=== PATIENT | female | born 1955 | race Caucasian/White ===

== ENCOUNTER 2017-09-14 12:44 | Day surgery (SDC) | payer BC ==
[~2017-09-14] VITALS: Ht 165.1 cm; Wt 83.7 kg
[2017-09-14] MEDS ORDERED: VICODIN 5-3001 EACH (13:34)
[2017-09-14] MEDS ORDERED: ESCI20 (13:34)
[2017-09-14] MEDS ORDERED: Omeprazole20 M1 (13:35)
== END 2017-09-14 14:45 | disposition home or self-care (01) ==
LOC: ORSCSDS 12:44
PROVIDERS: Internal Medicine Gastroenterology
PROC: 0D758ZZ Dilation of Esophagus, Via Natural or Artificial Opening Endoscopic (ICD-10-PCS; 2017-09-14)
PROC: 0DB68ZX Excision of Stomach, Via Natural or Artificial Opening Endoscopic, Diagnostic (ICD-10-PCS; principal; 2017-09-14 14:00)
DX: K21.9 Gastro-esophageal reflux disease without esophagitis (principal); K31.7 Polyp of stomach and duodenum; K29.70 Gastritis, unspecified, without bleeding; R13.10 Dysphagia, unspecified; I10 Essential (primary) hypertension; E78.5 Hyperlipidemia, unspecified; Z79.899 Other long term (current) drug therapy
CPT/HCPCS: 88305; 88342; J7120

== ENCOUNTER → 2019-02-14 | Outpatient (CLI) | payer BC ==
[~2019-02-14] MED LIST: ATOR20 PO; ESCI10 PO; GLIP5 PO; METF500C PO; Norco 5-325 Ta1 EACH PO; OMEPRAZOLE20 MG PO; Omeprazole20 M1; VICODIN 5-3001 EACH
[2019-02-14 15:44] LABS: Albumin, Blood 3.1 g/dL (3.4-5.0); Anion Gap 7 mmol/L (6-16); Blood Urea Nitrogen 37 mg/dL (8-24); Bun/Creatinine Ratio 10.6 (12.0-20.0); CO2, Blood 22 mmol/L (21-32); Calcium, Blood 7.8 mg/dL (8.5-10.1); Chloride, Blood 113 mmol/L (98-108); Glomerular Filtration Rate 14 (60-); Glucose, Blood 89 mg/dL (70-99); Phosphorus, Blood 3.8 mg/dL (2.5-4.9); Potassium, Blood 3.8 mmol/L (3.5-5.5); Sodium, Blood 142 mmol/L (136-145)
== END | disposition home or self-care (01) ==
LOC: LAB 15:06 → LAB SHORT 15:06
PROVIDERS: Internal Medicine Nephrology
DX: N18.4 Chronic kidney disease, stage 4 (severe) (principal); D63.1 Anemia in chronic kidney disease; D51.8 Other vitamin B12 deficiency anemias; D50.9 Iron deficiency anemia, unspecified; D52.8 Other folate deficiency anemias
CPT/HCPCS: 80069; 82728; 83540; 83550

== ENCOUNTER 2019-02-20 08:51 | Observation (INO) | payer BC ==
[~2019-02-20] VITALS: Ht 165.1 cm; Wt 78.3 kg
[~2019-02-20 08:51] MED LIST changes: -ATOR20 PO; -GLIP5 PO; -METF500C PO
[2019-02-20] MEDS ORDERED: TRAM50 PO (09:45)
[2019-02-20 10:52] LABS: Source, Urine Clean Catch
[2019-02-20 10:57] LABS: Bilirubin, Urine Neg (Neg); Blood, Urine 3+ (Neg); Glucose Qualitative, Urine 3+ (Neg); Ketones, Urine Neg (Neg); Leukocyte Esterase, Urine 1+ (Neg); Nitrite, Urine Neg (Neg); Protein, Urine 2+ (Neg); Urobilinogen, Urine NORM (Normal)
[2019-02-20 11:15] LABS: Appearance, Urine Clear (Clear); Bacteria Rare /hpf; Color, Urine Yellow (P-Yellow); Squamous Epithelial Cells Few /hpf (Few)
[2019-02-20 11:16] LABS: Granular Casts 0-2 /lpf (0); Hyaline Casts 0-2 /lpf (0-2)
[2019-02-20 11:30] LABS: Albumin, Blood 3.7 g/dL (3.4-5.0); Albumin/Globulin Ratio 0.8 (0.8-1.8); Bilirubin, Total 0.2 mg/dL (0.1-1.0); Bun/Creatinine Ratio 10.1 (12.0-20.0); Calcium, Blood 9.5 mg/dL (8.5-10.1); Creatinine, Blood 4.76 mg/dL (0.40-1.00); Globulin, Blood 4.8 g/dL (2.2-4.0); Potassium, Blood 3.6 mmol/L (3.5-5.5); Total Protein, Blood 8.5 g/dL (6.4-8.2)
[2019-02-20 11:46] LABS: BASOPHILS ABSOLUTE AUTO 0.05 K/mm3 (0.00-0.23); BASOPHILS PERCENT AUTO 1 % (0-2); EOSINOPHILS ABSOLUTE AUTO 0.22 K/mm3 (0.00-0.68); EOSINOPHILS PERCENT AUTO 3 % (0-6); Hematocrit 33.5 % (33.0-51.0); Hemoglobin 10.9 g/dL (11.5-16.0); IMMATURE GRAN ABSOLUTE AUTO 0.07 K/mm3 (0.00-0.10); IMMATURE GRAN PERCENT AUTO 1 % (0-1); LYMPHOCYTES ABSOLUTE AUTO 1.42 K/mm3 (0.84-5.20); LYMPHOCYTES PERCENT AUTO 17 % (21-46); MONOCYTES ABSOLUTE AUTO 0.82 K/mm3 (0.16-1.47); MONOCYTES PERCENT AUTO 10 % (4-13); Mean Corpuscular HGB 30.2 pg (26.0-34.0); Mean Corpuscular HGB Conc 32.5 g/dL (31.5-36.5); Mean Corpuscular Volume 93 fL (80-100); Mean Platelet Volume 8.8 fL (9.1-12.4); NEUTROPHILS ABSOLUTE AUTO 5.89 K/mm3 (1.96-9.15); NEUTROPHILS PERCENT AUTO 70 % (41-73); NRBC ABSOLUTE 0.03 K/mm3 (0.00-0.02); NRBC Auto 0.4 /100 WBC (0.0-0.2); Platelet Count 454 K/mm3 (150-400); RDW Coefficient Variation 13.7 % (11.7-14.2); RDW Standard Deviation 45.2 fL (35.1-46.3); Red Blood Cell Count 3.61 M/mm3 (3.80-5.20); White Blood Cell Count 8.47 K/mm3 (4.00-11.30)
[2019-02-20] MEDS ORDERED: GLIP5 PO (12:40)
[2019-02-20] MEDS ORDERED: ATOR20 PO (12:41)
[2019-02-20] MEDS ORDERED: METF500C PO (12:41)
[2019-02-20] MEDS ORDERED: PSEUDOEPHEDRINE30 MG PO (12:43)
[2019-02-20] MEDS ORDERED: Vitamin D2000 UNIT PO (13:11)
--- NOTE | 2019-02-20 16:05 | NUR ---
SPOKE WITH DR. MATOS TO CONFIRM LR ADMINISTRATION. FLUID ORDER TO REMAIN LR @75ML/HR.
--- NOTE | 2019-02-20 18:42 | NUR ---
SHIFT SUMMARY ED ADMIT. RENAL FAILURE. BARRIOS PATIENT. SEEN BY DR. KENNEDY TODAY. CHRONIC BACK AND NECK PAIN (CERICAL AND LUMBAR FUSION HX). PLEASANT, COOPERATIVE, INDEPENDENT IN ROOM. BLADDER SCAN NEEDED.
[2019-02-21 04:54] LABS: Hematocrit 36.7 % (33.0-51.0); Hemoglobin 11.5 g/dL (11.5-16.0)
[2019-02-21 05:31] LABS: Albumin, Blood 3.4 g/dL (3.4-5.0); Anion Gap 8 mmol/L (6-16); Blood Urea Nitrogen 43 mg/dL (8-24); Bun/Creatinine Ratio 9.3 (12.0-20.0); CO2, Blood 21 mmol/L (21-32); Chloride, Blood 112 mmol/L (98-108); Creatinine, Blood 4.62 mg/dL (0.40-1.00); Glomerular Filtration Rate 10 (60-); Glucose, Blood 113 mg/dL (70-99); Magnesium, Blood 2.5 mg/dL (1.6-2.4); Phosphorus, Blood 4.2 mg/dL (2.5-4.9); Potassium, Blood 3.4 mmol/L (3.5-5.5); Sodium, Blood 141 mmol/L (136-145)
--- NOTE | 2019-02-21 05:46 | NUR ---
SHIFT SUMMARY PT A/O INDEPENDENT. C/O PAIN IN LOWER BACK AND MEDICATED PER EMAR AND K PAD APPLIED TO BACK. REFUSED SCD'S. SHE WAS ABLE TO SLEEP T/O NIGHT. LR @ 75ML/HR. CALL LIGHT IN REACH.
--- NOTE | 2019-02-21 12:28 | NUR ---
PATIENT IS INDEPENDENT IN THE ROOM. DR. MATOS TO VISIT. MONITORING LABS I.E. KIDNEY FUNCTION LABS. WILL ASSESS WITH DR. BARRIOS AFTER AFTERNOON LABS TO DETERMINE PLAN OF ACTION.
[2019-02-21 13:27] LABS: Creatinine, Blood 4.74 mg/dL (0.40-1.00)
[2019-02-22 04:54] LABS: Hematocrit 35.3 % (33.0-51.0); Hemoglobin 11.1 g/dL (11.5-16.0)
[2019-02-22 05:13] LABS: International Normalized Ratio 0.99; Prothrombin Time Results 10.5 Sec (9.7-11.5)
[2019-02-22 05:20] LABS: Magnesium, Blood 2.4 mg/dL (1.6-2.4)
[2019-02-22 05:21] LABS: Albumin, Blood 3.3 g/dL (3.4-5.0); Anion Gap 7 mmol/L (6-16); Blood Urea Nitrogen 43 mg/dL (8-24); Bun/Creatinine Ratio 8.6 (12.0-20.0); CO2, Blood 21 mmol/L (21-32); Calcium, Blood 9.2 mg/dL (8.5-10.1); Chloride, Blood 111 mmol/L (98-108); Creatinine, Blood 5.02 mg/dL (0.40-1.00); Glomerular Filtration Rate 9 (60-); Glucose, Blood 105 mg/dL (70-99); Phosphorus, Blood 4.7 mg/dL (2.5-4.9); Potassium, Blood 3.6 mmol/L (3.5-5.5); Sodium, Blood 139 mmol/L (136-145)
--- NOTE | 2019-02-22 05:30 | NUR ---
SHIFT SUMMARY PATIENT IS ALERT AND ORIENTED. PATIENT REQUESTED TO SLEEP AND WOULD CALL IF SHE NEEDED ANY HELP. PATIENT IS INDEPENDENT IN ROOM. USES CALL LIGHT APPROPRIATELY. COMPLAINED OF PAIN ONCE AND MEDICATED ORDERED. PATIENT SLEPT WELL. VITALS STABLE. NO ACUTE CHANGES. PATIENT IS TO HAVE A KIDNEY BIOPSY TODAY AND WILL DISCHARGE AFTER.
--- NOTE | 2019-02-22 08:43 | NUR ---
PT TO PROCEDURE
[2019-02-22 10:14] LABS: Performing Lab LCA
[2019-02-22 10:31] LABS: BASOPHILS ABSOLUTE AUTO 0.04 K/mm3 (0.00-0.23); BASOPHILS PERCENT AUTO 1 % (0-2); EOSINOPHILS ABSOLUTE AUTO 0.29 K/mm3 (0.00-0.68); EOSINOPHILS PERCENT AUTO 4 % (0-6); Hematocrit 36.1 % (33.0-51.0); Hemoglobin 11.3 g/dL (11.5-16.0); IMMATURE GRAN ABSOLUTE AUTO 0.07 K/mm3 (0.00-0.10); IMMATURE GRAN PERCENT AUTO 1 % (0-1); LYMPHOCYTES ABSOLUTE AUTO 1.66 K/mm3 (0.84-5.20); LYMPHOCYTES PERCENT AUTO 22 % (21-46); MONOCYTES ABSOLUTE AUTO 0.85 K/mm3 (0.16-1.47); MONOCYTES PERCENT AUTO 11 % (4-13); Mean Corpuscular HGB 29.7 pg (26.0-34.0); Mean Corpuscular HGB Conc 31.3 g/dL (31.5-36.5); Mean Corpuscular Volume 95 fL (80-100); NEUTROPHILS ABSOLUTE AUTO 4.61 K/mm3 (1.96-9.15); NEUTROPHILS PERCENT AUTO 61 % (41-73); Platelet Count 403 K/mm3 (150-400); RDW Coefficient Variation 14.5 % (11.7-14.2); RDW Standard Deviation 47.1 fL (35.1-46.3); White Blood Cell Count 7.52 K/mm3 (4.00-11.30)
--- NOTE | 2019-02-22 14:35 | NUR ---
Patient welcomed a visit from spiritual care. Patient openly shares her struggles with her recent diagnosis, her concerns about her job and her catholic affiliation ([facility]). I listened empathically, provided spiritual guidance and provided prayer. Patient responded well and displayed evidence of restored aristides. Patient voiced appreciation for the visit.
--- NOTE | 2019-02-22 15:49 | NUR ---
DISCHARGE SUMMARY PT A&Ox4. CALM AND COOPERATIVE WITH CARE. PT RESTING IN BED DURING SHIFT. PT DENIES PAIN AND SOB. PT REPORTS NAUSEA THIS AM, PRIOR TO BIOPSY, DENIES NEEDS FOR MEDICATIONS. PT NPO SINCE MIDNIGHT FOR RENAL BIOPSY, COMPLETED THIS AM AND CT COMPLETED AFTER PT CLEAR TO SIT AN EAT THIS AFTERNOON. NO BLEEDING OR BRUISING NOTED AT BIOPSY SITE OF DISCHARGE. VSS. NO OTHER ACUTE CHANGS NOTED DURING SHIFT. PT EDUCATED ON DISCHARGE INSTRUCTIONS, RENAL BIOPSY AFTER CARE, MEDICATIONS AND FOLLOW UP APPOINTMENTS. NO NEW MEDICATIONS. PT LEFT ROOM VIA WHEELCHAIR AT 1549. PT STABLE UPON DISCHARGE.
[2019-02-23 13:07] LABS: M-SPIKE, % Not Observed % (Not Observed); PROTEIN,TOTAL,URINE 15.1 mg/dL (Not Estab.)
[2019-03-08 08:47] LABS: Result SEE PATHOTH RESULTS
== END 2019-02-22 15:49 | disposition home or self-care (01) ==
LOC: ER 08:51 → MEDS 08:52
PROVIDERS: Emergency Medicine; Internal Medicine Nephrology; ADMIT Internal Medicine
DX: N17.9 Acute kidney failure, unspecified (principal); E86.0 Dehydration; E11.22 Type 2 diabetes mellitus with diabetic chronic kidney disease; N18.6 End stage renal disease; D63.1 Anemia in chronic kidney disease; R77.8 Other specified abnormalities of plasma proteins; M54.9 Dorsalgia, unspecified; M79.606 Pain in leg, unspecified; G89.29 Other chronic pain; E86.9 Volume depletion, unspecified; E87.6 Hypokalemia; D47.3 Essential (hemorrhagic) thrombocythemia; R77.1 Abnormality of globulin
CPT/HCPCS: 36415; 50200; 76770; 77012; 80048; 80053; 80069; 81001; 82232; 82525; 82565; 82657; 82947; 83735; 84156; 84166; 84466; 85014; 85018; 85025; 85060; 85610; 85730; 87086; 88305; 88313; 88329; 88346; 88348; 88350; 96361; 96374; 99284-25; A9270-GY; G0378; J2405; J7030; J7120

== ENCOUNTER 2019-03-01 08:01 | Day surgery (SDC) | payer BC ==
[~2019-03-01] VITALS: Ht 165.1 cm; Wt 78.2 kg
[~2019-03-01 08:01] MED LIST changes: +ATOR20 PO; +GLIP5 PO; +METF500C PO; +PSEUDOEPHEDRINE30 MG PO; +TRAM50 PO; +Vitamin D2000 UNIT PO
[2019-03-01] MEDS ORDERED: ONDA4ODT MM (08:24)
--- NOTE | 2019-03-01 09:56 | NUR ---
PT ARRIVED BACK TO RECOVERY ROOM IN [facility]CLINER. RACW PERM CATH SITE STABLE WITH INTACT DRESSING; NO HEMATOMA AND NO BLEEDING. CALL LIGHT IN REACH.
--- NOTE | 2019-03-01 10:08 | NUR ---
PT EATING BREAKFAST.
--- NOTE | 2019-03-01 10:45 | NUR ---
DISCHARGE INSTRUCTIONS REVIEWED ALL QUESTIONS ANSWERED. 20 G IV REMOVED FROM LEFT AC WITH INTACT CANNULA. PT ESCORTED OUT VIA WHEELCHAIR ESCORT.
== END 2019-03-01 10:45 | disposition home or self-care (01) ==
LOC: MHTC 08:01
DX: E11.22 Type 2 diabetes mellitus with diabetic chronic kidney disease (principal); N18.6 End stage renal disease; E78.5 Hyperlipidemia, unspecified; F32.9 Major depressive disorder, single episode, unspecified; K21.9 Gastro-esophageal reflux disease without esophagitis; Z79.899 Other long term (current) drug therapy
CPT/HCPCS: 36558; 76937; 99152; 99153; C1750; J1644; J2250; J3010; J7030; J7040

== ENCOUNTER → 2019-03-18 | Outpatient (CLI) | payer BC ==
[~2019-03-18] MED LIST changes: +ONDA4ODT MM
[2019-03-19 13:49] LABS: Stool Occult Blood Guaiac 1 Neg (Neg)
[2019-03-19 13:50] LABS: Stool Occult Blood Guaiac 2 Neg (Neg); Stool Occult Blood Guaiac 3 Neg (Neg)
== END | disposition home or self-care (01) ==
LOC: LAB SHORT 11:48 → LAB 11:48 → LAB SHORT 03-19 11:48
PROVIDERS: Internal Medicine Nephrology
DX: R19.5 Other fecal abnormalities (principal)
CPT/HCPCS: 82270

== ENCOUNTER → 2019-09-02 | Outpatient (CLI) | payer BC ==
[2019-09-03 11:45] LABS: Creatinine Urine 29.7 mg/dL (27.00-270.00); Protein, Urine Quantitative 53.9 mg/dL (0.0-11.9)
[2019-09-03 11:48] LABS: Microalbumin, Urine Quant. 77.6 mg/L (0.000-20.000)
== END | disposition home or self-care (01) ==
LOC: LAB SHORT 20:45 → OLS 20:45 → LAB FUT 08-29 14:15
PROVIDERS: Internal Medicine Nephrology
DX: N18.4 Chronic kidney disease, stage 4 (severe) (principal); D63.1 Anemia in chronic kidney disease
CPT/HCPCS: 81050; 82043; 82570; 84156

== ENCOUNTER → 2020-02-11 | Outpatient (CLI) | payer BC ==
[2020-02-11 10:04] LABS: Creatinine Urine 30.2 mg/dL (27.00-270.00); Protein, Urine Quantitative 10.5 mg/dL (0.0-11.9)
[2020-02-11 10:07] LABS: Microalbumin, Urine Quant. 22.6 mg/L (0.000-20.000)
== END | disposition home or self-care (01) ==
LOC: LAB 08:54 → LAB SHORT 08:54 → LAB FUT 08-30 14:15
PROVIDERS: Internal Medicine Nephrology
DX: N18.4 Chronic kidney disease, stage 4 (severe) (principal); D63.1 Anemia in chronic kidney disease; G60.9 Hereditary and idiopathic neuropathy, unspecified; R76.9 Abnormal immunological finding in serum, unspecified; R94.5 Abnormal results of liver function studies
CPT/HCPCS: 81050; 82043; 82570; 84156

== ENCOUNTER → 2023-05-25 | Outpatient (CLI) | payer MEDICARE, BC ==
[~2023-05-25] MED LIST changes: +FAMO20 PO
[2023-05-26 14:35] LABS: Protein, Urine Quantitative 5.1 mg/dL (0.0-11.9)
[2023-05-26 14:56] LABS: Creatinine Urine 24.4 mg/dL (27.00-270.00)
[2023-05-26 15:02] LABS: Microalbumin, Urine Quant. 5.55 mg/L (0.000-20.000)
== END ==
LOC: LAB SHORT 06:15 → LAB 06:15
PROVIDERS: Internal Medicine Nephrology
DX: N18.30 Chronic kidney disease, stage 3 unspecified (principal); D63.1 Anemia in chronic kidney disease
CPT/HCPCS: 81050; 82043; 82570; 84156

== ENCOUNTER → 2024-04-29 | Outpatient (CLI) | payer MEDICARE, BC | LOC: LAB SHORT 10:47 → LAB 10:47 | DX: N39.0 Urinary tract infection, site not specified (principal) | CPT/HCPCS: 87077; 87086; 87186 ==